=== PATIENT | female | born 1955 | race Caucasian/White ===

== ENCOUNTER → 2022-04-19 | Outpatient (CLI) | payer MEDICARE, OTHER ==
[~2022-04-19] MED LIST: ALBUTEROL0.09 MG/A2 IH; DULERA1 AR2 IH; LISINOPRIL20 MG PO; OMEPRAZOLE D/R20 MG PO; OMNARIS50 MCG/Act NS; PROZAC40 MG PO; SINGULAIR10 MG PO; TRIAMTERENE/HCT1 CAP PO; VALTREX1 GM PO
[2022-04-19 10:28] LABS: BUN 18 mg/dl (7-24); CREATININE 0.75 mg/dL (0.55-1.02)
== END ==
LOC: LAB 09:49
PROVIDERS: ATTEND Urology
DX: C67.9 Malignant neoplasm of bladder, unspecified (principal)

== ENCOUNTER → 2022-04-23 | Outpatient (CLI) | payer MEDICARE, OTHER | END | disposition home or self-care (01) | LOC: RAD 01:25 | PROVIDERS: ATTEND Family Medicine Adult Medicine | DX: C67.9 Malignant neoplasm of bladder, unspecified (principal) ==